=== PATIENT | female | born 1985 | race Caucasian/White ===

== ENCOUNTER → 2020-07-23 10:28 | Outpatient (BNVA) | payer MEDICAID, SELFPAY | PROVIDERS: Visit Provider Obstetrics & Gynecology | DX: Z32.01 Encounter for pregnancy test, result positive (principal) | CPT/HCPCS: 81025 ==

== ENCOUNTER 2020-08-11 20:08 | Emergency (ER) | payer MEDICAID, SELFPAY ==
[2020-08-11 20:16] VITALS: BP 145/98; PULSE 115; RESP 14; TEMP 37; O2SAT 100; BMI 31.6
--- NOTE | 2020-08-11 20:23 | ED_ITS ---
HPI - Allergic Reaction General: Chief complaint: Allergic Reaction Stated complaint: ,trouble breathing; poss allergic reaction Time Seen by Provider: 08/11/20 20:22 Source: patient Mode of arrival: ambulatory Limitations: no limitations History of Present Illness: HPI narrative: Patient comes in for concerns of shortness of breath after eating a banana and her lips feeling funny. Patient appears well. Patient appears no acute distress. Respirations are even lungs are clear to auscultation. No obvious swelling is noted. No respiratory distress is noted. Patient appears in no pain. Patient's last menstrual cycle was middle of May. Review of Systems General: Reports: 10 or more systems reviewed and unremarkable except in HPI and below Resp: Reports: dyspnea [facility] ED Female Reproductive History: Date of last menstrual period: 06/11/20 Physical Exam 2 Const: COMMON NORMALS: no acute distress and patient oriented x3 GENERAL APPEARANCE: cooperative HENMT: COMMON NORMALS: normocephalic and Normal external nose present HEAD & SCALP: normal to inspection and normocephalic NOSE: Normal external nose present MOUTH: Normal oral and palatal mucosa present THROAT: posterior oropharynx normal Eye: GENERAL EYE: appearance normal, both eyes and all related structures Neck/C-Spine: COMMON NORMALS: full ROM Chest: COMMONS NORMALS: normal inspection of the chest Resp: COMMON NORMALS: normal respiratory effort and clear to auscultation bilaterally EFFORT & INSPECTION: Yes able to speak in complete sentences AUSCULTATION: clear to auscultation bilaterally Cardio: COMMON NORMALS: regular rate and regular rhythm RATE: regular rate RHYTHM: regular rhythm GI: COMMON NORMALS: non-tender Back/Pelvis: COMMON NORMALS: thoracic and lumbar spine normal to inspection Extremity: COMMON NORMALS: normal to inspection Neuro: COMMON NORMALS: patient oriented x3 and moves all extremities Psych: COMMON NORMALS: mental status grossly normal and cooperative Skin: COMMON NORMALS: no rashes or lesions noted GENERAL SKIN EXAM: no rashes or lesions noted Course Vital Signs: Vital signs: Vital Signs Temperature 98.6 F 08/11/20 20:16 Pulse Rate 98 08/11/20 20:48 Respiratory Rate 16 08/11/20 20:48 Blood Pressure 145/98 08/11/20 20:16 Pulse Oximetry 100 08/11/20 20:48 MDM - Allergic Reaction MDM Narrative: Medical decision making narrative: 34-year-old female comes in today for concerns of nausea, shortness of breath, and tongue of mouth feeling funny after eating a banana. Patient's last menstrual cycle was the middle of May. Patient appears well. Patient appears in no acute distress. Patient reports no previous episode of allergy to bananas. Vital signs were normal. Differential diagnosis includes but not limited to food allergy, GERD, anxiety. Patient was given 50 mg of Benadryl and 20 mg of famotidine with improvement of symptoms. Reviewed recommendations for treatment and need for follow-up or return. Patient reported understanding. Patient was improved Discharge Plan Discharge Patient Disposition: Home Clinical Impression: Allergic reaction Qualifiers: Encounter type: initial encounter Qualified Code(s): T78.40XA - Allergy, unspecified, initial encounter Condition: Stable Prescriptions: New famotidine 20 mg tablet 20 mg PO BID Qty: 10 RF: 0 diphenhydramine HCl 25 mg capsule 25 mg PO Q4H PRN (Reason: allergic reaction) Qty: 30 RF: 0 Discharge Orders: Discharge ED (Routine); Ordered 08/11/20 Ordered By: Albert Waggoner Discharge Diet: Usual diet Discharge Activity: Increase activity as tolerated Patient Instructions: Food Allergy (ED) Activity Restrictions/Additional Instructions: Avoid bananas. Use Benadryl 1 capsule every 4-6 hours for the next 2 days for any itching or signs of allergic reaction. Use famotidine 20 mg twice a day for the next 5 days. Drink plenty of fluids with medication. Follow-up with primary care as needed. Coding Level of Care Code ED Glue Reel Operator for Luiza Fwd Exam Comprehensive
[2020-08-11] MEDS: famotidine 20 mg Tablet PO (20:30)
[2020-08-11] MEDS: diphenhydrAMINE 50 mg Capsule PO (20:30)
[2020-08-11 20:48] VITALS: PULSE 98; RESP 16; O2SAT 100
[2020-08-11 21:28] VITALS: PULSE 101; RESP 18; O2SAT 100
== END 2020-08-11 21:28 | disposition home or self-care (01) ==
PROVIDERS: Emergency Provider Nurse Practitioner Family
DX: O26.899 Other specified pregnancy related conditions, unspecified trimester (principal); T78.40XA Allergy, unspecified, initial encounter; Z3A.00 Weeks of gestation of pregnancy not specified
CPT/HCPCS: 12345; 99281; 99283; Q0163

== ENCOUNTER → 2020-09-19 08:44 | Outpatient (BNVA) | payer BC, SELFPAY | PROVIDERS: Visit Provider Obstetrics & Gynecology | DX: O09.892 Supervision of other high risk pregnancies, second trimester (principal); Z3A.14 14 weeks gestation of pregnancy; R80.9 Proteinuria, unspecified | CPT/HCPCS: 80307; 81511; 84315; 85025; 86592; 86762; 86803; 86850; 86900; 87086; 87340; 87806 ==

== ENCOUNTER → 2020-09-21 00:01 | Outpatient (BNVA) | payer BC, SELFPAY | PROVIDERS: Visit Provider Obstetrics & Gynecology | DX: O09.899 Supervision of other high risk pregnancies, unspecified trimester (principal); R80.9 Proteinuria, unspecified; O09.892 Supervision of other high risk pregnancies, second trimester; Z3A.14 14 weeks gestation of pregnancy | CPT/HCPCS: 84156 ==

== ENCOUNTER → 2020-10-03 09:08 | Outpatient (BNVA) | payer BC, MEDICAID, SELFPAY | PROVIDERS: Visit Provider Obstetrics & Gynecology | DX: O09.899 Supervision of other high risk pregnancies, unspecified trimester (principal); O99.332 Smoking (tobacco) complicating pregnancy, second trimester; O34.219 Maternal care for unspecified type scar from previous cesarean delivery; O09.522 Supervision of elderly multigravida, second trimester; O35.1XX0 Maternal care for (suspected) chromosomal abnormality in fetus, not applicable or unspecified; Z3A.00 Weeks of gestation of pregnancy not specified | CPT/HCPCS: 81000; 87491; 87591; 88175; 88262 ==

== ENCOUNTER → 2020-10-31 13:38 | Outpatient (BNVA) | payer BC, MEDICAID, SELFPAY | PROVIDERS: Visit Provider Nurse Practitioner Women's Health | DX: Z34.90 Encounter for supervision of normal pregnancy, unspecified, unspecified trimester (principal) | CPT/HCPCS: 80307; 81000 ==

== ENCOUNTER → 2020-12-03 09:20 | Outpatient (BNVA) | payer BC, MEDICAID, SELFPAY | PROVIDERS: Visit Provider Obstetrics & Gynecology | DX: O09.899 Supervision of other high risk pregnancies, unspecified trimester (principal); A59.01 Trichomonal vulvovaginitis | CPT/HCPCS: 81000; 87661 ==

== ENCOUNTER → 2020-12-24 08:58 | Outpatient (BNVA) | payer BC, MEDICAID, SELFPAY | PROVIDERS: Visit Provider Obstetrics & Gynecology | DX: O99.332 Smoking (tobacco) complicating pregnancy, second trimester (principal); O34.219 Maternal care for unspecified type scar from previous cesarean delivery; O09.522 Supervision of elderly multigravida, second trimester; O35.1XX0 Maternal care for (suspected) chromosomal abnormality in fetus, not applicable or unspecified; O26.892 Other specified pregnancy related conditions, second trimester; R12 Heartburn; A59.01 Trichomonal vulvovaginitis | CPT/HCPCS: 81000; 82950; 85025 ==

== ENCOUNTER → 2021-01-07 15:18 | Outpatient (BNVA) | payer BC, MEDICAID, SELFPAY | PROVIDERS: Visit Provider Obstetrics & Gynecology | DX: O09.899 Supervision of other high risk pregnancies, unspecified trimester (principal); O09.522 Supervision of elderly multigravida, second trimester; Z3A.00 Weeks of gestation of pregnancy not specified | CPT/HCPCS: 81000 ==

== ENCOUNTER 2021-01-21 09:01 | Outpatient (CLI) | payer BC, MEDICAID, SELFPAY ==
[2021-01-21] VITALS (7 sets, daily range): BP systolic 103–118; BP diastolic 61–73; PULSE 82–110; RESP 16; TEMP 36.2–36.9; BMI 32.9
[2021-01-21 09:48] LABS: Amphetamines Screen Urine Negative (Negative); Barbiturates Screen Urine Negative (Negative); Benzodiazepines Screen Urine Negative (Negative); Cocaine Screen Urine Negative (Negative); Opiate Screen Urine Negative (Negative); PCP Screen Urine Negative (Negative); THC Screen Urine Negative (Negative)
[2021-01-21 09:49] LABS: Bilirubin Urine Neg (Negative); Blood Urine Neg (Negative); Glucose Urine UA Norm (Normal); Ketones Urine Negative (Negative); Leukocyte Esterase Urine Negative (Negative); Nitrate Urine Negative (Negative); Protein Urine Neg (Negative); Urine Appearance Clear (CLEAR); Urine Color Straw (Yellow); Urobilinogen Urine Norm (Negative); pH Urine 7 (5-7)
[2021-01-21 09:51] LABS: Add Urine Culture? No; Bacteria Urine TRACE /hpf; RBC Urine 0-4 /hpf (0-2); Squamous Epithelial Cell Urine 0-4 /hpf (0-5); WBC Urine 0-4 /hpf (0-5)
--- NOTE | 2021-01-21 10:02 | USR_ITS ---
PROCEDURE INFORMATION: Exam: US , Limited Exam date and time: 01/21/2021 10:02 AM Age: 35 years old Clinical indication: Lmp or gestational age (in weeks): 35w6d; Antepartum complications; Other: Cramping; ; Prior surgery; Surgery type: D&c c-sec; Additional info: Abdominal pain; HX of placental abruption, bpp^placenta location^cervical length TECHNIQUE: Imaging protocol: Real-time ultrasound of the maternal uterus with image documentation. Exam focused on the clinical indication. COMPARISON: US OB <= 14 weeks fetus [facility] 09/14/2020 4:01 PM FINDINGS: Gestation: There is a intrauterine gestational sac seen with a fetus. heart rate rate is 136 BPM the fetus is in transverse presentation. The placenta is anterior. The edge of the placenta is 5 cm from the cervical os. The amniotic fluid is normal in volume. position: anatomic structures are incompletely visualized. BIOMETRY: Gestational age (AUA): Clinical gestational age is 35 weeks 6 days RICARDO 05/15/2020. MATERNAL: Cervix: The cervix measures 4.6 cm in length the cervical os is closed. US/US OB lmt w/ BPP wo NST IMPRESSION: 1. Single intrauterine gestation 2. Clinical gestational age 35 weeks 6 days RICARDO 02/19/2021. 3. Incomplete visualization of anatomy 4. Biophysical profile 02/24
== END 2021-01-21 12:15 | disposition home or self-care (01) ==
LOC: OPOB 09:03 → OBGYN 09:04
PROVIDERS: Visit Provider Obstetrics & Gynecology
DX: O26.893 Other specified pregnancy related conditions, third trimester (principal); Z3A.35 35 weeks gestation of pregnancy; R10.9 Unspecified abdominal pain
CPT/HCPCS: 59025; 76815; 76819; 80306; 81001; 99211

== ENCOUNTER 2021-01-24 14:45 | Outpatient (CLI) | payer BC, MEDICAID, SELFPAY ==
[2021-01-24 14:59] VITALS: BMI 32.9
[2021-01-24 15:01] VITALS: BP 110/76; PULSE 106; RESP 16; TEMP 36.8; O2SAT 97
[2021-01-24] MEDS: betamethasone susp 6 mg/mL 5 mL 12 MG IM (15:08)
== END 2021-01-24 15:11 | disposition home or self-care (01) ==
LOC: OPOB 14:55 → OBGYN 14:56
PROVIDERS: Visit Provider Obstetrics & Gynecology
DX: O26.899 Other specified pregnancy related conditions, unspecified trimester (principal); Z3A.00 Weeks of gestation of pregnancy not specified
CPT/HCPCS: 96372; J0702

== ENCOUNTER 2021-01-25 13:54 | Outpatient (CLI) | payer BC, MEDICAID, SELFPAY ==
[2021-01-25 13:54] VITALS: BMI 33.1
[2021-01-25 14:17] VITALS: BP 118/62; PULSE 99; RESP 16; TEMP 36.6
[2021-01-25] MEDS: betamethasone susp 6 mg/mL 5 mL 12 MG IM (14:39)
== END 2021-01-25 14:40 | disposition home or self-care (01) ==
LOC: OPOB 13:59 → OBGYN 14:05
PROVIDERS: Visit Provider Obstetrics & Gynecology
DX: O26.899 Other specified pregnancy related conditions, unspecified trimester (principal); Z3A.00 Weeks of gestation of pregnancy not specified
CPT/HCPCS: 59025; 81000; 96372; 99211; J0702

== ENCOUNTER → 2021-02-01 09:51 | Outpatient (BNVA) | payer BC, MEDICAID, SELFPAY | PROVIDERS: Visit Provider Obstetrics & Gynecology | DX: O09.899 Supervision of other high risk pregnancies, unspecified trimester (principal); Z3A.00 Weeks of gestation of pregnancy not specified | CPT/HCPCS: 81000 ==

== ENCOUNTER → 2021-02-08 12:35 | Outpatient (BNVA) | payer BC, MEDICAID, SELFPAY | PROVIDERS: Visit Provider Obstetrics & Gynecology | DX: O09.899 Supervision of other high risk pregnancies, unspecified trimester (principal); Z3A.00 Weeks of gestation of pregnancy not specified | CPT/HCPCS: 81000 ==

== ENCOUNTER 2021-02-12 09:12 | Outpatient (CLI) | payer BC, MEDICAID, SELFPAY ==
[2021-02-12 09:19] VITALS: RESP 16
[2021-02-12 09:20] VITALS: BP 110/70; PULSE 101; TEMP 36.2
[2021-02-12 09:21] VITALS: BMI 33.3
[2021-02-12] MEDS: betamethasone susp 6 mg/mL 5 mL 12 MG IM (09:43)
== END 2021-02-12 09:45 | disposition home or self-care (01) ==
LOC: OPOB 09:13 → OBGYN 09:13
PROVIDERS: Visit Provider Obstetrics & Gynecology
DX: O26.899 Other specified pregnancy related conditions, unspecified trimester (principal); Z3A.00 Weeks of gestation of pregnancy not specified
CPT/HCPCS: 96372; J0702

== ENCOUNTER → 2021-02-13 09:49 | Outpatient (BNVA) | payer BC, MEDICAID, SELFPAY | PROVIDERS: Visit Provider Obstetrics & Gynecology | DX: O34.219 Maternal care for unspecified type scar from previous cesarean delivery (principal); Z3A.00 Weeks of gestation of pregnancy not specified | CPT/HCPCS: 87635 ==

== ENCOUNTER → 2021-02-14 11:10 | Outpatient (BNVA) | payer BC, MEDICAID, SELFPAY | PROVIDERS: Visit Provider Obstetrics & Gynecology | DX: O09.899 Supervision of other high risk pregnancies, unspecified trimester (principal); Z3A.00 Weeks of gestation of pregnancy not specified | CPT/HCPCS: 81000; 87081 ==

== ENCOUNTER 2021-02-19 05:06 | Inpatient (IN) | payer BC, MEDICAID, SELFPAY ==
[2021-02-19] VITALS (24 sets, daily range): BP systolic 101–154; BP diastolic 34–87; PULSE 63–104; RESP 17; TEMP 35.9–37.1; O2SAT 93–100; BMI 33.5
[2021-02-19] MEDS: lactated ringers 1,000 ML 999 ML IV ×2 (05:12→07:13)
[2021-02-19 05:38] LABS: Basophils % 0.3 %; Eosinophils # 0.2 10^3/uL (0.0-0.8); Eosinophils % 1.7 %; Hematocrit 34.3 % (37.0-47.0); Hemoglobin 11.2 g/dL (11.5-15.3); Lymphocytes # 4.1 10^3/uL (0.8-4.8); Lymphocytes % 29.7 %; Mean Corpuscular HGB Conc 32.7 g/dL (30.0-36.0); Mean Corpuscular Hemoglobin 28.8 pg (28.0-34.0); Mean Corpuscular Volume 88.2 fL (81-99); Mean Platelet Volume 10.5 fL (7.4-10.4); Monocytes # 0.8 10^3/uL (0.2-0.9); Monocytes % 5.5 %; Neutrophils # 8.66 10^3/uL (1.8-7.7); Neutrophils % 62.4 %; Nucleated Red Blood Cells % 0 %; Platelet Count 406 10^3/cmm (130-400); Red Blood Count 3.89 10^6/uL (4.1-5.3); White Blood Count 13.9 10^3/uL (4.0-10.0)
[2021-02-19 05:48] LABS: Amphetamines Screen Urine Negative (Negative); Barbiturates Screen Urine Negative (Negative); Benzodiazepines Screen Urine Negative (Negative); Cocaine Screen Urine Negative (Negative); Opiate Screen Urine Negative (Negative); PCP Screen Urine Negative (Negative); THC Screen Urine Negative (Negative)
[2021-02-19 06:16] LABS: Slide Review Slide Review Perform
--- NOTE | 2021-02-19 06:47 | ANES.PREANE2 ---
Pre-Anesthetic Assessment Pre-Anesthetic Assessment: Height/Weight: Height 1.6 m Weight 85.729 kg Temp Pulse BP 96.6 F L 90 110/55 02/19/21 05:31 02/19/21 06:33 02/19/21 06:33 Preop Diagnosis: Previous Section Proposed Procedure: Operation Date: 02/19/21 07:00 Proposed Procedures p Section Repeat 66189 O34.219(Not Applicable) - Angely Hoffman MD Was Beta Arpit taken within 24 hours: N/A Was Clonidine taken within 24 hours: N/A Social: Social History: Tobacco Exam: Pre-Anes Outpt Exam: alert, oriented x 3, clear to auscultation bilaterally and regular rate & rhythm Airway: Submandibular: WNL Cervical ROM: WNL MP: 2 Dentition: Chipped and Loose Additional comments: very poor dentition History/ROS: No significant history except as noted Pulmonary: Comments: chronic bronchitis CV/HEM: CV/HEM: None reported : : None reported Hepatic: Hepatic: None reported GI: GI: GERD Metabolic: Metabolic: None reported Musc/skel: Musc/skel: None reported Neuropsych: Neuropsych: None reported Anesthetic Plan: ASA status: 2 Anesthesia: Anesthesia Evaluation and Eval. for regional block Other: SAB Risk of > 500 ml blood loss (7ml/kg in children): No PFSH Anesthesia PFSH: Medical History Bronchitis frequent No pertinent past medical history neghx: htn,dm,thyroid,dvt/pe,herpes Denies past partner herpes hx PCP: none Surgical History H/O dilation and curettage (~2009) History of section (~2010) delivered at 20weeks; placental abruption Family History Family/Other Cancer Paternal aunt with breast Family/Other Cancer Paternal uncle-- colon cancer Mother Family history of premature coronary artery disease, Onset Age: 39 [place] Stroke Diabetes Father CAD (coronary artery disease) Hyperlipidemia Hypertension Female Reproductive History: : 3 Data Anesthesia CBC & Chem 7: 02/19/21 05:25 Other Labs: Laboratory Results - last 48 hr 02/19/21 02/19/21 02/19/21 05:25 05:25 05:25 WBC 13.9 H RBC 3.89 L Hgb 11.2 L Hct 34.3 L MCV 88.2 MCH 28.8 MCHC 32.7 RDW 14.0 Plt Count 406 H MPV 10.5 H Neut % (Auto) 62.4 Lymph % (Auto) 29.7 [place] % (Auto) 5.5 Eos % (Auto) 1.7 Baso % (Auto) 0.3 Neut # (Auto) 8.66 H Lymph # (Auto) 4.1 [place] # (Auto) 0.8 Eos # (Auto) 0.2 Baso # (Auto) 0.0 Nucleated RBC % (auto) 0 Nucleated RBCs # 0.0 Urine Opiates Screen Negative Ur Barbiturates Screen Negative Ur Phencyclidine Scrn Negative Ur Amphetamines Screen Negative U Benzodiazepines Scrn Negative Urine Cocaine Screen Negative U Marijuana (THC) Screen Negative Blood Type O Positive Rho(D) Type Positive / 4+ Cardiac Studies: No Data to Display
--- NOTE | 2021-02-19 06:55 | W.PM.OPSUD ---
Surgery/Procedure H&P Update DATE OF PROCEDURE: February 19, 2021 DATE H&P PERFORMED: 02/14/21 H&P UPDATE INFORMATION: I have reviewed H&P completed within last 30 days, I have examined patient prior to procedure and No changes to prior documentation PREOP DIAGNOSIS: Previous Section PLANNED PROCEDURE: Operation Date: 02/19/21 07:00 Proposed Procedures p Section Repeat 96495 O34.219(Not Applicable) - Angely Hoffman MD
[2021-02-19] MEDS: metoclopramide 5 mg/mL SDV 2 mL 10 MG IVP (06:57)
[2021-02-19] MEDS: famotidine 20 mg/2 mL INJ IVP (06:57)
[2021-02-19] MEDS: citric acid-sodium citrate 30 mL UDC PO (06:57)
--- NOTE | 2021-02-19 08:46 | PM.OP ---
Operative Report Date of procedure: February 19, 2021 Pre-op Diagnosis: Previous Section, previous classical incision Post-op diagnosis: same Post-op Findings: same with septate uterus Procedure Done: repeat Specimens removed/disposition: placenta Pathology: none sent Surgeon: Angely Hoffman Anesthesia: Other (spinal) Estimated blood loss (mL): 300 IV fluids (mL): 1,000 Urine output (mL): 50 Complications: none Findings: anterior placenta without evidence of acreta. Baby in transverse back down presentation Condition: stable Disposition: PACU Brief History: The patient had a previous classical for a 24 week baby that . This has been complicated by a fetus with Mcarthur's syndrome and previous classical Procedure: The patient was taken to the operating room where spinal anesthesia was administered and found to be adequate. She was prepped and draped in the normal sterile fashion in the dorsal supine position with a leftward tilt. A Pfannenstiel skin incision was made and carried down to the underlying layer of fascia. The fascia was nicked in the midline and extended laterally with the Jimenez scissors. The fascia was then tented up and the rectus muscles dissected off sharply. The rectus muscles were and the peritoneum entered bluntly with the digit. The peritoneal incision was extended superiorly and inferiorly with good visualization of the bladder. The Wali O retractor was placed. It was clear of any bowel or omentum. The bladder flap was created sharply with the Metzenbaum scissors. A low transverse uterine incision was made and carried down to the bag of water. The bag of water was ruptured and the uterine incision extended cephalocaudad. The scalp was grasped and brought through the incision. The nose and mouth were bulb suctioned. The shoulders and body delivered atraumatically. The baby was allowed to rest, while being dried, for 1 minute and then the cord was clamped and cut. The baby was handed to the waiting irrigation system operator. The placenta was delivered by expression. The uterus was exteriorized and cleared of all clots and debris. The uterine incision was closed with 0 Vicryl in a running fashion. A second imbricating layer of 3-0 Monocryl was used to close the uterus. The bladder flap was closed with 3-0 Monocryl. There was excellent hemostasis. The Wali O retractor was removed. The uterus was returned to the abdomen. The peritoneum was closed with 3-0 Monocryl, incorporating the rectus muscle. The fascia was closed with 0 Vicryl in 2 separate sutures overlapping in the midline. The skin was closed with absorbable maite. Apgars on baby 8 at 1 minute and 9 at 5 minutes. weight 4 pounds 15 ounces. Mother and baby were stable post delivery.
[2021-02-19] MEDS: ondansetron 2 mg/ML SDV 2 mL 4 MG IVP (09:46)
[2021-02-19] MEDS: promethazine 25 mg/mL SDV 1 mL IM (11:48)
[2021-02-19] MEDS: lactated ringers 1,000 ML 125 ML IV (15:51)
[2021-02-19] MEDS: ketorolac 30 mg/mL INJ IVP ×2 (16:18→20:52)
--- NOTE | 2021-02-19 17:06 | ANE.PACU2 ---
Inpatient post-anesthesia follow up: Airway intact: Yes Vital signs: Temperature 98.2 F Pulse Rate 63 Respiratory Rate Blood Pressure 103/69 Pulse Oximetry 95 Oxygen Delivery Me thod Room Air Oxygen Flow Rate Fraction of Inspir ed Oxygen Hydration adequate: Yes Nausea and vomiting: No Pain level: 2 Mental status: Baseline
--- NOTE | 2021-02-19 17:37 | PC.NURSE ---
Pt given nipple shield in hopes to assist in keeping baby latched when she relaxes. not keeping a rhythmic suck, supplement of similac 22cal formula given per syringe and IV cath tip through shield to entice baby to keep a rhythmic suck. Infant tolerated feeding well and remained at the breast for 10min and took 6ml of formula.
--- NOTE | 2021-02-19 18:20 | PC.NURSE ---
Patient ambulated in hallway around nurses station 4 times. Patient tolerated well, no complaints of dizziness.
[2021-02-19] MEDS: sodium chloride 0.9% 500 ML 999 ML IV (18:25)
[2021-02-19] MEDS: docusate sodium 100 mg Capsule PO (18:56)
[2021-02-19] MEDS: famotidine 20 mg Tablet PO (18:56)
[2021-02-19] MEDS: ferrous sulfate EC 325 mg Tablet PO (18:56)
[2021-02-19] MEDS: simethicone 80 mg Chew PO (20:52)
[2021-02-19 21:17] LABS: Hematocrit 30.3 % (37.0-47.0); Hemoglobin 9.8 g/dL (11.5-15.3); Mean Corpuscular HGB Conc 32.3 g/dL (30.0-36.0); Mean Corpuscular Hemoglobin 29.1 pg (28.0-34.0); Mean Corpuscular Volume 89.9 fL (81-99); Mean Platelet Volume 10.6 fL (7.4-10.4); Platelet Count 362 10^3/cmm (130-400); Red Blood Count 3.37 10^6/uL (4.1-5.3); White Blood Count 16.8 10^3/uL (4.0-10.0)
[2021-02-20] MEDS: dextrose 5%-lactated ringers 1,000 ML 125 ML IV (00:54)
[2021-02-20] MEDS: ketorolac 30 mg/mL INJ IVP (02:47)
[2021-02-20 04:00] VITALS: BP 97/68; PULSE 71; RESP 13; O2SAT 95
[2021-02-20 04:29] LABS: Basophils # 0.1 10^3/uL (0.0-0.1); Basophils % 0.3 %; Eosinophils # 0.2 10^3/uL (0.0-0.8); Eosinophils % 1.2 %; Hematocrit 28.6 % (37.0-47.0); Hemoglobin 9.3 g/dL (11.5-15.3); Lymphocytes # 4.1 10^3/uL (0.8-4.8); Lymphocytes % 24.2 %; Mean Corpuscular HGB Conc 32.5 g/dL (30.0-36.0); Mean Corpuscular Volume 89.1 fL (81-99); Mean Platelet Volume 10.5 fL (7.4-10.4); Monocytes # 1.1 10^3/uL (0.2-0.9); Monocytes % 6.3 %; Neutrophils # 11.45 10^3/uL (1.8-7.7); Neutrophils % 67.5 %; Nucleated Red Blood Cells % 0 %; Platelet Count 329 10^3/cmm (130-400); Red Blood Count 3.21 10^6/uL (4.1-5.3)
[2021-02-20 04:44] LABS: Slide Review Slide Review Perform
[2021-02-20] MEDS: famotidine 20 mg Tablet PO (08:59)
[2021-02-20] MEDS: lanolin oint 7 gm 1 APPLIC TOPICAL (08:59)
[2021-02-20] MEDS: prenatal vitamin Capsule 1 CAP PO (08:59)
[2021-02-20] MEDS: docusate sodium 100 mg Capsule PO ×2 (08:59→17:59)
[2021-02-20] MEDS: ferrous sulfate EC 325 mg Tablet PO ×2 (08:59→17:59)
[2021-02-20] MEDS: ibuprofen 800 mg tablet PO ×3 (10:16→21:15)
[2021-02-20 10:18] VITALS: BP 104/68; PULSE 88; RESP 16; TEMP 36.7; O2SAT 97
--- NOTE | 2021-02-20 12:02 | P.PN_ITS ---
Subjective Subjective: Interval history: The patient is doing well this morning. No concerns. Pain is well controlled. Vitals/I&O/Wt Last Vital Signs Temp 98.0 F 02/20/21 10:18 Pulse 88 02/20/21 10:18 Resp 16 02/20/21 10:18 BP 104/68 02/20/21 10:18 Pulse Ox 97 02/20/21 10:18 02/19/21 02/20/21 02/20/21 22:59 06:59 14:59 Intake Total 820.833 / 2820.833 3439.167 / 3439.167 Output Total 620 / 1140 600 / 1740 Balance 200.833 / 1680.833 -600 / 5970.587 2646.167 / 3439.167 Weight last 48 hrs Weight 189 lb Physical Exam Narrative: EXAM NARRATIVE: The patient is tolerating a regular diet. Pain is well controlled. No further nausea. She would like to be discharged, but baby is unlikely to go home today Const: COMMON NORMALS: no acute distress, average body habitus, patient orien attila x3, no limitations, healthy appearing, alert and well nourished GENERAL APPEARANCE: cooperative, comfortable, well kempt and well developed ORIENTATION/CONSCIOUSNESS: Yes awake, Yes oriented to person, Yes oriented to place and Yes oriented to time Resp: COMMON NORMALS: normal respiratory effort and No use of accessory muscles Extremity: COMMON NORMALS: no clubbing, cyanosis or edema and no calf tenderness Neuro: COMMON NORMALS: patient oriented x3 SENSORIUM/ORIENTATION: Yes alert, Yes oriented to person, Yes oriented to place and Yes oriented to time Psych: COMMON NORMALS: mental status grossly normal, Normal thought process present, cooperative, normal affect and speech normal APPEARANCE: Yes grossly normal and Yes well kempt ATTITUDE: Yes calm and Yes engaged ACTIVITY/MOTOR BEHAVIOR: Yes appropriate eye contact SPEECH: Yes normal speech THOUGHT PROCESS: Normal thought process present Skin: WOUNDS: Yes surgical site (clean/dry and intact) Urinary Catheter Management^: Beck: Cath Placed During This Visit: yes, but has since been removed by the nurse Reason for Continuing Indwelling Catheter: Accurate Measurement of Urinary Output in Critically Ill Patients Urinary Catheter Date of Insertion: 02/19/21 Urinary Catheter Time of Insertion: 07:25 Date Urinary Catheter Removed: 08/04/21 Time Urinary Catheter Discontinued: 01:00 Data : 02/20/21 04:00 A&P Assessment and plan (1) Postoperative state: Status: Acute Attestations Medical Necessity Statement*: The patient had a repeat . She is staying two days Coding Level of Care Code Acute Burling And Joining Supervisor for Luiza Silver Diagnoses Postoperative state Z98.890
--- NOTE | 2021-02-20 12:42 | PC.NURSE ---
note Discussed feeding with mom. Plan made. 1. Baby to the breast for 10 min to feed or just nuzzle with or without a nipple shield 2. Baby to bottle feed 10 ml (or more if baby wants more) of formula or expressed breastmilk (if available). Give the expressed breastmilk first. 3. Mom pumps both breasts for 15 min. Repeat every 2-3 hours. Goal of 10 feedings or more in 24 hours. Should not go less than 8 feedings in 24 hours.
--- NOTE | 2021-02-20 14:58 | PC.RESP ---
Smoking Cessation information sent to patient.
[2021-02-20 15:57] VITALS: BP 113/75; PULSE 82; RESP 16; TEMP 36.7; O2SAT 96
[2021-02-20 21:18] VITALS: BP 128/86; PULSE 62; RESP 16; TEMP 36.6; O2SAT 97
[2021-02-21 04:00] VITALS: BP 122/82; PULSE 83; RESP 16; O2SAT 97
[2021-02-21] MEDS: HYDROcodone-acetaminophen 5-325 mg Tablet PO (06:16)
--- NOTE | 2021-02-21 07:54 | PM.DCS ---
Discharge Providers Date of Admission: 02/19/21 05:06 Date of Discharge: February 21, 2021 Attending Provider at Admission: Angely Hoffman MD Attending Provider at Discharge: Angely Hoffman MD Diagnoses at Discharge Discharge Diagnosis (1) Postoperative state: Status: Acute Reason for Visit Reason for Visit: repeat section Hospital Course Hospital Course The patient was admitted for repeat . she did well postoperatively and was ready for discharge on day #2 Physical Exam Narrative: EXAM NARRATIVE: The patient is doing well this morning. No concerns. Minimal lochia, ambulating without difficulty, tolerating a regular diet and pain is well controlled Const: COMMON NORMALS: no acute distress, average body habitus, patient oriented x3, no limitations and healthy appearing GENERAL APPEARANCE: cooperative, comfortable, well kempt and well developed ORIENTATION/CONSCIOUSNESS: Yes awake and Yes oriented to time Resp: COMMON NORMALS: normal respiratory effort and No use of accessory muscles GI: COMMON NORMALS: Soft to palpation and non-tender PALPATION: Yes Soft to palpation Extremity: COMMON NORMALS: no clubbing, cyanosis or edema and no calf tenderness Neuro: COMMON NORMALS: patient oriented x3 SENSORIUM/ORIENTATION: Yes oriented to time Psych: APPEARANCE: Yes well kempt Skin: WOUNDS: Yes surgical site (clean/dry/intact) Urinary Catheter Management^: Beck: Cath Placed During This Visit: yes, but has since been removed by the nurse Reason for Continuing Indwelling Catheter: Accurate Measurement of Urinary Output in Critically Ill Patients Urinary Catheter Date of Insertion: 02/19/21 Urinary Catheter Time of Insertion: 07:25 Date Urinary Catheter Removed: 02/20/21 Time Urinary Catheter Discontinued: 01:00 Discharge Data Data Completed and Pending: Pending at discharge Category Date Time Status Leukocyte Reduced RBC Timed Lab 02/19/21 05:25 Results Type and Screen T imed Lab 02/19/21 05:25 Results Vitals: Last Vital Signs Temp 97.9 F 02/20/21 21:18 Pulse 83 02/21/21 04:00 Resp 16 02/21/21 04:00 BP 122/82 02/21/21 04:00 Pulse Ox 97 02/21/21 04:00 Discharge Plan Discharge Patient Disposition: Home Condition: Stable Prescriptions: New hydrocodone-acetaminophen 5-325 mg Tablet 1 tab PO Q4H PRN (Reason: Moderate To Severe Pain) Qty: 30 RF: 0 Continued multivitamin [One Daily Multivitamin] Tablet 1 tab PO DAILY RF: 0 famotidine [Pepcid] 20 mg tablet 20 mg PO BID Qty: 60 RF: 6 acetaminophen [Tylenol Extra Strength] 500 mg tablet 500 mg PO Q6H PRN (Reason: Pain, Mild) RF: 0 calcium carb-mag ox-zinc gluc 333-133-5 mg tablet 1 tab PO DAILY RF: 0 Discharge Orders: Discharge Order (Routine); Ordered 02/21/21 Ordered By: Angely Hoffman Referrals: Angely Hoffman MD [Physician] - 02/25/21 12:45 pm (Your 1 week incision check is scheduled for 02/25/21 @12:45. Your 6 week post- appointment is scheduled for 04/01/21 @12:45. ) Patient Instructions: Vitamins (By mouth), Depression (GEN), Pre-eclampsia and Eclampsia (DC), Bleeding (DC), OB WHC, OB Discharge Report, OB Food/Drug Interaction Guide, Opioid Safety, OB Proud Parent Packet Discharge Attestations Time Spent in Discharge Care*: less than 30 min Quality Metrics Clinical Quality Measures During this hospital stay, did patient experience: None Coding Level of Care Code Acute Chg FW DC note Diagnoses Postoperative state Z98.890
[2021-02-21] MEDS: famotidine 20 mg Tablet PO (09:19)
[2021-02-21] MEDS: ferrous sulfate EC 325 mg Tablet PO (09:19)
[2021-02-21] MEDS: ibuprofen 800 mg tablet PO (09:19)
[2021-02-21] MEDS: docusate sodium 100 mg Capsule PO (09:19)
[2021-02-21] MEDS: prenatal vitamin Capsule 1 CAP PO (09:19)
[2021-02-21 09:20] VITALS: BP 123/75; PULSE 87; RESP 18; TEMP 36.5; O2SAT 98
[2021-02-21 12:35] VITALS: BP 128/75; PULSE 68; RESP 16; TEMP 36.9; O2SAT 98
== END 2021-02-21 13:40 | disposition home or self-care (01) | DRG 786 ==
PROVIDERS: Admitting Provider Obstetrics & Gynecology; Visit Provider Obstetrics & Gynecology
PROC: 10D00Z1 Extraction of Products of Conception, Low, Open Approach (ICD-10-PCS; CPT 59514; principal; 2021-02-19 07:00)
DX: O34.212 Maternal care for vertical scar from previous cesarean delivery (principal); O60.14X0 Preterm labor third trimester with preterm delivery third trimester, not applicable or unspecified; O99.334 Smoking (tobacco) complicating childbirth; F17.210 Nicotine dependence, cigarettes, uncomplicated; O35.1XX0 Maternal care for (suspected) chromosomal abnormality in fetus, not applicable or unspecified; O75.89 Other specified complications of labor and delivery; R12 Heartburn; Z3A.36 36 weeks gestation of pregnancy; Z37.0 Single live birth; Z87.59 Personal history of other complications of pregnancy, childbirth and the puerperium
CPT/HCPCS: 36415; 51702; 59025; 59409; 80306; 85025; 85027; 86850; 86900; 86920; 96372; 96374; 96375; 98960; J0690; J1885; J2274; J2370; J2405; J2550; J2765; J3490; J7040

== ENCOUNTER → 2021-11-12 07:58 | Outpatient (BNVA) | payer BC, MEDICAID, SELFPAY | PROVIDERS: Visit Provider Nurse Practitioner Women's Health | DX: N92.6 Irregular menstruation, unspecified (principal); Z34.90 Encounter for supervision of normal pregnancy, unspecified, unspecified trimester | CPT/HCPCS: 80307; 81025 ==

== ENCOUNTER → 2021-12-09 08:55 | Outpatient (BNVA) | payer BC, MEDICAID, SELFPAY | PROVIDERS: Visit Provider Obstetrics & Gynecology | DX: O09.90 Supervision of high risk pregnancy, unspecified, unspecified trimester (principal); Z3A.00 Weeks of gestation of pregnancy not specified | CPT/HCPCS: 80307; 81000; 87086 ==

== ENCOUNTER → 2022-01-01 13:40 | Outpatient (BNVA) | payer BC, MEDICAID, SELFPAY | PROVIDERS: Visit Provider Obstetrics & Gynecology | DX: O09.90 Supervision of high risk pregnancy, unspecified, unspecified trimester (principal); Z3A.00 Weeks of gestation of pregnancy not specified | CPT/HCPCS: 81000; 84443; 85025; 86592; 86762; 86803; 86850; 86900; 87340 ==

== ENCOUNTER → 2022-01-23 15:40 | Outpatient (BNVA) | payer BC, MEDICAID, SELFPAY | PROVIDERS: Visit Provider Obstetrics & Gynecology | DX: O09.90 Supervision of high risk pregnancy, unspecified, unspecified trimester (principal); Z3A.00 Weeks of gestation of pregnancy not specified | CPT/HCPCS: 81000 ==

== ENCOUNTER 2022-02-20 14:24 | Outpatient (CLI) | payer BC, MEDICAID, SELFPAY ==
[2022-02-20 15:15] LABS: Glucose Tolerance 1 Hour Gest 95 mg/dL
== END 2022-02-20 14:25 | disposition home or self-care (01) ==
PROVIDERS: Visit Provider Obstetrics & Gynecology
DX: O09.90 Supervision of high risk pregnancy, unspecified, unspecified trimester (principal); Q99.9 Chromosomal abnormality, unspecified
CPT/HCPCS: 81000; 82950; 88262

== ENCOUNTER → 2022-03-17 08:56 | Outpatient (BNVA) | payer BC, MEDICAID, SELFPAY | PROVIDERS: Visit Provider Obstetrics & Gynecology | DX: O09.90 Supervision of high risk pregnancy, unspecified, unspecified trimester (principal) | CPT/HCPCS: 81000 ==

== ENCOUNTER → 2022-04-14 09:17 | Outpatient (BNVA) | payer BC, MEDICAID, SELFPAY | PROVIDERS: Visit Provider Obstetrics & Gynecology | DX: O09.90 Supervision of high risk pregnancy, unspecified, unspecified trimester (principal); Z3A.00 Weeks of gestation of pregnancy not specified | CPT/HCPCS: 81000; 82950; 85025 ==

== ENCOUNTER → 2022-04-24 08:20 | Outpatient (BNVA) | payer BC, MEDICAID, SELFPAY | PROVIDERS: Visit Provider Obstetrics & Gynecology | DX: O09.90 Supervision of high risk pregnancy, unspecified, unspecified trimester (principal) | CPT/HCPCS: 82951; 82952 ==

== ENCOUNTER 2022-04-28 10:45 | Outpatient (CLI) | payer BC, MEDICAID, SELFPAY ==
[2022-04-28] MEDS: betamethasone susp 6 mg/mL 5 mL 12 MG IM (10:59)
--- NOTE | 2022-04-28 11:12 | PC.NURSE ---
DR. MUÑOZ ORDERED PATIENT A BETAMETHASONE INJECTION ONLY, ASKED IF SHE NEEDED MONITORING OR VITALS AND SHE SAID NO JUST INJECTION.
== END 2022-04-28 11:00 | disposition home or self-care (01) ==
LOC: OPOB 10:49 → OBGYN 10:50
PROVIDERS: Visit Provider Obstetrics & Gynecology
DX: O26.899 Other specified pregnancy related conditions, unspecified trimester (principal); Z3A.00 Weeks of gestation of pregnancy not specified
CPT/HCPCS: 81000; 96372; J0702

== ENCOUNTER 2022-04-29 10:52 | Outpatient (CLI) | payer BC, MEDICAID, SELFPAY ==
[2022-04-29 11:09] VITALS: RESP 18; BMI 32.4
[2022-04-29] MEDS: betamethasone susp 6 mg/mL 5 mL 12 MG IM (11:14)
== END 2022-04-29 11:10 | disposition home or self-care (01) ==
LOC: OPOB 10:59
PROVIDERS: Visit Provider Obstetrics & Gynecology
DX: O26.899 Other specified pregnancy related conditions, unspecified trimester (principal); Z3A.00 Weeks of gestation of pregnancy not specified
CPT/HCPCS: 96372; J0702

== ENCOUNTER → 2022-05-12 10:40 | Outpatient (BNVA) | payer BC, MEDICAID, SELFPAY | PROVIDERS: Visit Provider Obstetrics & Gynecology | DX: O09.90 Supervision of high risk pregnancy, unspecified, unspecified trimester (principal) | CPT/HCPCS: 81000 ==

== ENCOUNTER → 2022-05-26 10:48 | Outpatient (BNVA) | payer BC, MEDICAID, SELFPAY | PROVIDERS: Visit Provider Obstetrics & Gynecology | DX: O09.90 Supervision of high risk pregnancy, unspecified, unspecified trimester (principal); Z3A.00 Weeks of gestation of pregnancy not specified | CPT/HCPCS: 81000; 87081 ==

== ENCOUNTER 2022-06-02 14:03 | Outpatient (CLI) | payer BC, MEDICAID, SELFPAY ==
[2022-06-02 14:07] VITALS: BMI 33.1
[2022-06-02 14:55] VITALS: BP 109/71; PULSE 96; RESP 16
[2022-06-02] MEDS: dexamethasone 10 mg/mL INJ 6 MG IM (14:55)
[2022-06-02 15:00] VITALS: BP 109/71; PULSE 96; RESP 16
== END 2022-06-02 15:00 | disposition home or self-care (01) ==
LOC: OPOB 14:04 → OBGYN 14:05
PROVIDERS: Visit Provider Obstetrics & Gynecology
DX: O26.899 Other specified pregnancy related conditions, unspecified trimester (principal); Z3A.00 Weeks of gestation of pregnancy not specified
CPT/HCPCS: 96372; 99211; J1100

== ENCOUNTER 2022-06-03 07:00 | Outpatient (CLI) | payer BC, MEDICAID, SELFPAY ==
[2022-06-03] MEDS: dexamethasone 10 mg/mL INJ 6 MG IM (07:29)
== END 2022-06-03 07:30 | disposition home or self-care (01) ==
LOC: OPOB 07:06
PROVIDERS: Visit Provider Obstetrics & Gynecology
DX: O26.899 Other specified pregnancy related conditions, unspecified trimester (principal); Z3A.00 Weeks of gestation of pregnancy not specified
CPT/HCPCS: 96372; J1100

== ENCOUNTER 2022-06-03 18:50 | Outpatient (CLI) | payer BC, MEDICAID, SELFPAY ==
[2022-06-03] MEDS: dexamethasone 10 mg/mL INJ 6 MG IM (19:29)
--- NOTE | 2022-06-03 19:39 | PC.NURSE ---
Pt here for IM injection at this time. Injection given to pt in R deltoid. Pt instructed to return to OB tomorrow morning for injection. Pt verbalized understanding.
== END 2022-06-03 19:30 | disposition home or self-care (01) ==
LOC: OPOB 18:56
PROVIDERS: Visit Provider Obstetrics & Gynecology
DX: O26.899 Other specified pregnancy related conditions, unspecified trimester (principal); Z3A.00 Weeks of gestation of pregnancy not specified
CPT/HCPCS: 96372; J1100

== ENCOUNTER 2022-06-04 06:59 | Outpatient (CLI) | payer BC, MEDICAID, SELFPAY ==
[2022-06-04 07:09] VITALS: BMI 33.1
[2022-06-04 07:40] VITALS: BP 119/79; PULSE 81; RESP 15; TEMP 36.9
[2022-06-04] MEDS: dexamethasone 10 mg/mL INJ 6 MG IM (07:41)
== END 2022-06-04 07:43 | disposition home or self-care (01) ==
LOC: OPOB 07:01 → OBGYN 08:04
PROVIDERS: Visit Provider Obstetrics & Gynecology
DX: O26.899 Other specified pregnancy related conditions, unspecified trimester (principal); Z3A.00 Weeks of gestation of pregnancy not specified
CPT/HCPCS: 96372; J1100

== ENCOUNTER 2022-06-10 04:59 | Inpatient (IN) | payer BC, MEDICAID, SELFPAY ==
[2022-06-10] VITALS (28 sets, daily range): BP systolic 96–132; BP diastolic 49–79; PULSE 53–109; RESP 16–17; TEMP 36.6–36.9; O2SAT 95–99; BMI 33.6
[2022-06-10 05:30] LABS: Basophils % 0.2 %; Eosinophils # 0.2 10^3/uL (0.0-0.8); Eosinophils % 1.5 %; Hematocrit 35.4 % (37.0-47.0); Hemoglobin 11.3 g/dL (11.5-15.3); Lymphocytes # 3.6 10^3/uL (0.8-4.8); Mean Corpuscular HGB Conc 31.9 g/dL (30.0-36.0); Mean Corpuscular Hemoglobin 27.8 pg (28.0-34.0); Mean Corpuscular Volume 87.2 fl (81-99); Monocytes # 0.8 10^3/uL (0.2-0.9); Monocytes % 5.3 %; Neutrophils # 9.57 10^3/uL (1.8-7.7); Neutrophils % 67.4 %; Nucleated Red Blood Cells % 0 %; Platelet Count 329 10^3/cmm (130-400); Red Blood Count 4.06 10^6/uL (4.1-5.3); Red Cell Distribution Width 15.2 % (12.1-15.1); White Blood Count 14.2 10^3/uL (4.0-10.0)
[2022-06-10] MEDS: lactated ringers 1,000 ML 999 ML IV ×2 (05:33→06:40)
--- NOTE | 2022-06-10 06:45 | P.ANESASSM_ITS ---
Pre-Anesthetic Assessment Height/Weight: Height 1.6 m Weight 86.183 kg Pulse Resp BP O2 Del Method 85 16 110/62 06/10/22 06:24 06/10/22 05:02 06/10/22 06:24 06/10/22 05:05 Preop Diagnosis: Previous Section, previous classical incision Operation Date: 06/10/22 07:00 Proposed Procedures p Section Repeat With Tubal 42255/68654 O34.219 z30.2(Not Applicable) - Angely Hoffman MD Familial anesthetic complications: none Last intake: meal- 06/09 liquids- 06/09 Social Tobacco Airway Submandibular: within normal limits Cervical ROM: within normal limits Mallampati: Class II Dentition: false Comments: Comments: upper and lower plate Pulmonary None reported CV/HEM None reported None reported Hepatic None reported GI Gastroesophageal Reflux Disease Metabolic None reported Musc/skel None reported Neuropsych None reported Anesthetic Plan ASA status: 2 Anesthesia: Regional (specify below) Other: SAB Medications/Allergies Home Medications Medication Instructions Recorded Confirmed Last Taken Type 1 tab PO DAILY 06/02/22 06/10/22 06/09/22 History famotidine 20 mg tablet See Rx Instructions .Route 06/05/22 06/10/22 06/09/22 Rx .COMPLEX #60 tabs Allergies Allergy/AdvReac Type Severity Reaction Status Date / Time No Known Allergies Allergy Verified 06/10/22 05:38 [facility] Anesthesia Medical History Bronchitis frequent 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 No pertinent past medical history neghx: htn,dm,thyroid,dvt/pe,herpes Denies past partner herpes hx PCP: none Surgical History H/O dilation and curettage (~2009) History of section (~2010) 1)-2010 delivered at 20weeks; placental abruption- CLASSICAL C/S 2)- 02/2021 at 36weeks Family History Family/Other Breast cancer maternal aunt Family/Other Breast cancer maternal side--unknown Mother Stroke Diabetes Thyroid disease Father Hypertension Heart disease Denies family history of Colon cancer Ovarian cancer Uterine cancer Female Reproductive History : 4 Data Anesthesia 06/10/22 05:15 Short CBC 06/10/22 Range/Units 05:15 WBC 14.2 H (4.0-10.0) 10^3/uL Hgb 11.3 L (11.5-15.3) g/dL Hct 35.4 L (37.0-47.0) % MCV 87.2 (81-99) fl Plt Count 329 (130-400) 10^3/cmm Neut % (Auto) 67.4 % Neut # (Auto) 9.57 H (1.8-7.7) 10^3/uL Cardiac Studies: No Data to Display
[2022-06-10] MEDS: citric acid-sodium citrate 30 mL UDC PO (06:47)
[2022-06-10] MEDS: famotidine 20 mg/2 mL INJ IVP (06:47)
[2022-06-10] MEDS: metoclopramide 5 mg/mL SDV 2 mL 10 MG IVP (06:47)
--- NOTE | 2022-06-10 06:54 | PM.OPHPUD ---
Labor & Delivery H&P Update Date of Procedure: June 10, 2022 Date H&P Performed: 06/02/22 H&P update information: I have reviewed H&P completed within last 30 days, I have examined patient prior to procedure and No changes to prior documentation Admission Diagnosis: Preop diagnosis: Previous Section, previous classical incision Planned procedure: Operation Date: 06/10/22 07:00 Proposed Procedures p Section Repeat With Tubal 91627/13921 O34.219 z30.2(Not Applicable) - Angely Hoffman MD Related Problem List Diagnoses (1) GBS (group B Streptococcus carrier), +RV culture, currently : (2) Sterilization consult: (3) Supervision of high risk , antepartum:
[2022-06-10] MEDS: ceFAZolin 2,000 MG in sodium chloride 0.9% (plus) 50 ML 100 MG IV (07:10)
--- NOTE | 2022-06-10 08:37 | P.OP_ITS ---
Operative Report Date of procedure: June 10, 2022 Pre-op diagnosis: Preop Diagnosis Previous Section, previous classical incision Desires sterilization Post-op diagnosis: same Post-op findings: term male in the kimberley breech presentation, normal appearing uterus, tubes and ovaries. moderate adhesions of the left adnexae Procedure done: repeat with bilateral salpingectomy Specimens removed/disposition: bilateral fallopian tubes to pathology Surgeon: Angely Hoffman Anesthesia: Other (spinal) Estimated blood loss (mL): 100 IV fluids (mL): 1,500 Urine output (mL): 100 Complications: none Condition: stable Disposition: PACU Procedure: The patient was taken to the operating room where spinal anesthesia was administered and found to be adequate. She was prepped and draped in the normal sterile fashion in the dorsal supine position with a leftward tilt. A Pfannenstiel skin incision was made and carried down to the underlying layer of fascia. The fascia was nicked in the midline and extended laterally with the Jimenez scissors. The fascia was then tented up and the rectus muscles dissected off sharply. The rectus muscles were and the peritoneum entered bluntly with the digit. The peritoneal incision was extended superiorly and inferiorly with good visualization of the bladder. The Wali O retractor was placed. It was clear of any bowel or omentum. The bladder flap was created sharply with the Metzenbaum scissors. A low transverse uterine incision was made and carried down to the bag of water. The bag of water was ruptured and the uterine incision extended cephalocaudad. The breech was grasped and brought through the incision, followed by the body and head. The nose and mouth were bulb suctioned. The baby was allowed to rest, while being dried, for 1 minute and then the cord was clamped and cut. The baby was handed to the waiting indirect fire infantryman. The placenta was delivered by expression. The uterus was exteriorized and cleared of all clots and debris. The uterine incision was closed with 0 Vicryl in a running fashion. A second imbricating layer of 3-0 Monocryl was used to close the uterus. The bladder flap was closed with 3-0 Monocryl. There was excellent hemostasis. Attention was then turned to the salpingectomy portion of the procedure. The left fallopian tube was grasped with an allis clamp and elevated. Using a cautery device and starting at the cornua, the mesosalpinx was cauterized and divided down to the the fimbria of the fallopian tube. The entire tube was removed. There was excellent hemostasis. The right tube was removed in a similar manner. The Wali O retractor was removed. The uterus was returned to the abdomen. The peritoneum was closed with 3-0 Monocryl, incorporating the rectus muscle. The fascia was closed with 0 Vicryl in 2 separate sutures overlapping in the midline. The skin was closed with absorbable maite. Apgars on baby 8 at 1 minute and 9 at 5 minutes. weight 5 pounds 10 ounces. Mother and baby were stable post delivery. The baby was taken to the nursery for close observation.
[2022-06-10] MEDS: ketorolac 30 mg/mL INJ IVP ×2 (09:57→16:16)
[2022-06-10] MEDS: dextrose 5%-lactated ringers 1,000 ML 125 ML IV (09:59)
[2022-06-10] MEDS: diphenhydrAMINE 50 mg/mL SDV 1mL 25 MG IVP (11:32)
--- NOTE | 2022-06-10 13:23 | ANE.PACU2 ---
Inpatient post-anesthesia follow up: Airway intact: Yes Vital signs: Temperature 98.1 F Pulse Rate 73 Respiratory Rate 16 Blood Pressure 105/58 Pulse Oximetry 98 Oxygen Delivery Me thod Room Air Oxygen Flow Rate Fraction of Inspir ed Oxygen Hydration adequate: Yes Nausea and vomiting: No Pain level: 2 Mental status: Baseline
[2022-06-10] MEDS: sodium chloride 0.9% 500 ML 999 ML IV (14:25)
--- NOTE | 2022-06-10 16:30 | PC.NURSE ---
Assisted patient with hand expression. Patient states she doesn't want to do this and will have her bring her her pump. She stated to give the baby formula until her pump arrives.
[2022-06-10] MEDS: docusate sodium 100 mg Capsule PO (18:51)
[2022-06-10] MEDS: simethicone 80 mg Chew PO (22:21)
[2022-06-10] MEDS: oxyCODONE-APAP 5-325 mg Tablet PO (22:47)
[2022-06-11] VITALS (8 sets, daily range): BP systolic 128–144; BP diastolic 61–80; PULSE 80–109; RESP 16; TEMP 36.6–36.8; O2SAT 98–99
[2022-06-11 00:51] LABS: Hematocrit 31.9 % (37.0-47.0); Hemoglobin 10.3 g/dL (11.5-15.3); Mean Corpuscular HGB Conc 32.3 g/dL (30.0-36.0); Mean Corpuscular Hemoglobin 28.4 pg (28.0-34.0); Mean Corpuscular Volume 87.9 fl (81-99); Mean Platelet Volume 10.7 fL (7.4-10.4); Platelet Count 306 10^3/cmm (130-400); Red Blood Count 3.63 10^6/uL (4.1-5.3); Red Cell Distribution Width 15.3 % (12.1-15.1); White Blood Count 15.1 10^3/uL (4.0-10.0)
[2022-06-11] MEDS: oxyCODONE-APAP 5-325 mg Tablet PO ×3 (03:07→21:18)
[2022-06-11] MEDS: ibuprofen 800 mg tablet PO ×3 (09:05→21:18)
[2022-06-11] MEDS: docusate sodium 100 mg Capsule PO ×2 (09:05→21:18)
[2022-06-11] MEDS: prenatal vitamin Capsule 1 CAP PO (09:05)
[2022-06-11] MEDS: famotidine 20 mg Tablet PO (11:42)
--- NOTE | 2022-06-11 12:55 | P.DS_ITS ---
Discharge Providers Date of Admission: 06/10/22 04:59 Date of Discharge: June 11, 2022 Attending Provider at Admission: Angely Hoffman MD Attending Provider at Discharge: Angely Hoffman MD Diagnoses at Discharge Discharge Diagnosis (1) GBS (group B Streptococcus carrier), +RV culture, currently : Status: Acute (2) Sterilization consult: Status: Acute (3) Supervision of high risk , antepartum: Status: Acute Reason for Visit Reason for Visit: Repeat section 12662, 68808 Physical Exam Urinary Catheter Management: Beck: Cath Placed During This Visit: yes, but has since been removed by the nurse Reason for Continuing Indwelling Catheter: Decision to DC Catheter Urinary Catheter Date of Insertion: 06/10/22 Urinary Catheter Time of Insertion: 07:15 Date Urinary Catheter Removed: 06/10/22 Time Urinary Catheter Discontinued: 22:20 Discharge Data Studies Completed and Pending Laboratory Results WBC 15.1 10^3/uL (4.0-10.0) H 06/11/22 00:46 RBC 3.63 10^6/uL (4.1-5.3) L 06/11/22 00:46 Hgb 10.3 g/dL (11.5-15.3) L 06/11/22 00:46 Hct 31.9 % (37.0-47.0) L 06/11/22 00:46 MCV 87.9 fl (81-99) 06/11/22 00:46 MCH 28.4 pg (28.0-34.0) 06/11/22 00:46 MCHC 32.3 g/dL (30.0-36.0) 06/11/22 00:46 RDW 15.3 % (12.1-15.1) H 06/11/22 00:46 Plt Count 306 10^3/cmm (130-400) 06/11/22 00:46 MPV 10.7 fL (7.4-10.4) H 06/11/22 00:46 Neut % (Auto) 67.4 % 06/10/22 05:15 Lymph % (Auto) 25.0 % 06/10/22 05:15 [place] % (Auto) 5.3 % 06/10/22 05:15 Eos % (Auto) 1.5 % 06/10/22 05:15 Baso % (Auto) 0.2 % 06/10/22 05:15 Neut # (Auto) 9.57 10^3/uL (1.8-7.7) H 06/10/22 05:15 Lymph # (Auto) 3.6 10^3/uL (0.8-4.8) 06/10/22 05:15 [place] # (Auto) 0.8 10^3/uL (0.2-0.9) 06/10/22 05:15 Eos # (Auto) 0.2 10^3/uL (0.0-0.8) 06/10/22 05:15 Baso # (Auto) 0.0 10^3/uL (0.0-0.1) 06/10/22 05:15 Nucleated RBC % (auto) 0 % 06/10/22 05:15 Nucleated RBCs # 0.0 /100WBC 06/10/22 05:15 Blood Type O Positive 06/10/22 05:15 Rho(D) Type Positive 06/10/22 05:15 Antibody Screen Negative 06/10/22 05:15 Vitals Last Vital Signs Temp 97.9 F 06/11/22 09:07 Pulse 85 06/11/22 09:07 Resp 16 06/11/22 09:07 BP 128/61 06/11/22 09:07 Pulse Ox 98 06/11/22 09:07 O2 Del Method 06/11/22 09:07 Discharge Plan Discharge Patient Disposition: Home Condition: Stable Prescriptions: New ibuprofen 800 mg Tablet 800 mg PO TID Qty: 30 0RF oxycodone-acetaminophen 5-325 mg Tablet 1 tab PO Q4H PRN (Reason: Moderate To Severe Pain) Qty: 30 0RF docusate sodium 100 mg Capsule 100 mg PO BID Qty: 60 0RF ferrous sulfate 325 mg (65 mg iron) Tablet,Delayed Release (Dr/Ec) 325 mg PO BIDWM Qty: 30 0RF Continued famotidine 20 mg tablet See Rx Instructions .ROUTE .COMPLEX Qty: 60 5RF Dose Instruction: TAKE 1 TABLET BY MOUTH TWICE DAILY Rx Instructions: TAKE 1 TABLET BY MOUTH TWICE DAILY 1 tab PO DAILY Patient Instructions: Opioid Safety Coding Level of Care Code Acute Chg FW DC note Diagnoses GBS (group B Streptococcus carrier), +RV culture, currently O99.820 Sterilization consult Z30.09 Supervision of high risk , antepartum O09.90
--- NOTE | 2022-06-11 17:04 | PM.PN ---
Vitals/I&O/Wt Last Vital Signs Temp 97.9 F 06/11/22 16:00 Pulse 94 06/11/22 16:00 Resp 16 06/11/22 16:00 BP 144/80 06/11/22 16:00 Pulse Ox 98 06/11/22 09:07 O2 Del Method 06/11/22 09:07 Weight last 48 hrs Weight 190 lb Physical Exam Narrative: The patient is doing well this morning. She has no concerns. Const: COMMON NORMALS: no acute distress, patient oriented x3, no limitations, healthy appearing, alert and well nourished GENERAL APPEARANCE: cooperative, comfortable, well kempt and well developed ORIENTATION/CONSCIOUSNESS: Yes awake, Yes oriented to person, Yes oriented to place and Yes oriented to time Resp: COMMON NORMALS: normal respiratory effort EFFORT & INSPECTION: Yes able to speak in complete sentences GI: COMMON NORMALS: Soft to palpation and non-tender PALPATION: Yes Soft to palpation Extremity: COMMON NORMALS: no calf tenderness Neuro: COMMON NORMALS: patient oriented x3 SENSORIUM/ORIENTATION: Yes alert, Yes oriented to person, Yes oriented to place and Yes oriented to time Psych: APPEARANCE: Yes well kempt Skin: WOUNDS: Yes surgical site (clean/dry/intact) Urinary Catheter Management: Beck: Cath Placed During This Visit: yes, but has since been removed by the nurse Reason for Continuing Indwelling Catheter: Decision to DC Catheter Urinary Catheter Date of Insertion: 06/10/22 Urinary Catheter Time of Insertion: 07:15 Date Urinary Catheter Removed: 06/10/22 Time Urinary Catheter Discontinued: 22:20 Data 06/11/22 00:46 Attestations Medical Necessity Statement*: The patient will be here for two midnights. 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
[2022-06-11] MEDS: ferrous sulfate EC 325 mg Tablet PO (21:17)
[2022-06-12 05:21] VITALS: RESP 17; O2SAT 99
[2022-06-12] MEDS: oxyCODONE-APAP 5-325 mg Tablet PO ×2 (05:21→11:30)
[2022-06-12] MEDS: famotidine 20 mg Tablet PO (09:07)
[2022-06-12] MEDS: ibuprofen 800 mg tablet PO (09:07)
[2022-06-12] MEDS: prenatal vitamin Capsule 1 CAP PO (09:07)
--- NOTE | 2022-06-12 10:55 | P.DS_ITS ---
Discharge Providers Date of Admission: 06/10/22 04:59 Date of Discharge: June 12, 2022 Attending Provider at Admission: Angely Hoffman MD Attending Provider at Discharge: Angely Hoffman MD Diagnoses at Discharge Discharge Diagnosis (1) GBS (group B Streptococcus carrier), +RV culture, currently : Status: Acute (2) Sterilization consult: Status: Acute (3) Supervision of high risk , antepartum: Status: Acute Reason for Visit Reason for Visit: Repeat section 34021, 95977 Hospital Course Hospital Course The patient was admitted for repeat . she did well postoperatively and was ready for discharge on day #2 Physical Exam Narrative: The patient is doing well this morning. She is ready for discharge. Const: COMMON NORMALS: no acute distress, patient oriented x3, no limitations, healthy appearing, alert and well nourished GENERAL APPEARANCE: cooperative, comfortable, well kempt and well developed ORIENTATION/CONSCIOUSNESS: Yes awake, Yes oriented to person, Yes oriented to place and Yes oriented to time Resp: COMMON NORMALS: normal respiratory effort EFFORT & INSPECTION: Yes able to speak in complete sentences GI: COMMON NORMALS: Soft to palpation and non-tender PALPATION: Yes Soft to palpation Extremity: COMMON NORMALS: no calf tenderness Neuro: COMMON NORMALS: patient oriented x3 SENSORIUM/ORIENTATION: Yes alert, Yes oriented to person, Yes oriented to place and Yes oriented to time Psych: APPEARANCE: Yes well kempt Urinary Catheter Management: Beck: Cath Placed During This Visit: yes, but has since been removed by the nurse Reason for Continuing Indwelling Catheter: Decision to DC Catheter Urinary Catheter Date of Insertion: 06/10/22 Urinary Catheter Time of Insertion: 07:15 Date Urinary Catheter Removed: 06/10/22 Time Urinary Catheter Discontinued: 22:20 Discharge Data Studies Completed and Pending Laboratory Results WBC 15.1 10^3/uL (4.0-10.0) H 06/11/22 00:46 RBC 3.63 10^6/uL (4.1-5.3) L 06/11/22 00:46 Hgb 10.3 g/dL (11.5-15.3) L 06/11/22 00:46 Hct 31.9 % (37.0-47.0) L 06/11/22 00:46 MCV 87.9 fl (81-99) 06/11/22 00:46 MCH 28.4 pg (28.0-34.0) 06/11/22 00:46 MCHC 32.3 g/dL (30.0-36.0) 06/11/22 00:46 RDW 15.3 % (12.1-15.1) H 06/11/22 00:46 Plt Count 306 10^3/cmm (130-400) 06/11/22 00:46 MPV 10.7 fL (7.4-10.4) H 06/11/22 00:46 Neut % (Auto) 67.4 % 06/10/22 05:15 Lymph % (Auto) 25.0 % 06/10/22 05:15 [place] % (Auto) 5.3 % 06/10/22 05:15 Eos % (Auto) 1.5 % 06/10/22 05:15 Baso % (Auto) 0.2 % 06/10/22 05:15 Neut # (Auto) 9.57 10^3/uL (1.8-7.7) H 06/10/22 05:15 Lymph # (Auto) 3.6 10^3/uL (0.8-4.8) 06/10/22 05:15 [place] # (Auto) 0.8 10^3/uL (0.2-0.9) 06/10/22 05:15 Eos # (Auto) 0.2 10^3/uL (0.0-0.8) 06/10/22 05:15 Baso # (Auto) 0.0 10^3/uL (0.0-0.1) 06/10/22 05:15 Nucleated RBC % (auto) 0 % 06/10/22 05:15 Nucleated RBCs # 0.0 /100WBC 06/10/22 05:15 Blood Type O Positive 06/10/22 05:15 Rho(D) Type Positive 06/10/22 05:15 Antibody Screen Negative 06/10/22 05:15 Vitals Last Vital Signs Temp 97.9 F 06/11/22 16:00 Pulse 80 06/11/22 21:24 Resp 17 06/12/22 05:21 BP 135/68 06/11/22 21:24 Pulse Ox 99 06/12/22 05:21 O2 Del Method 06/11/22 09:07 Discharge Plan Discharge Patient Disposition: Home Condition: Stable Prescriptions: New ibuprofen 800 mg Tablet 800 mg PO TID Qty: 30 0RF oxycodone-acetaminophen 5-325 mg Tablet 1 tab PO Q4H PRN (Reason: Moderate To Severe Pain) Qty: 30 0RF docusate sodium 100 mg Capsule 100 mg PO BID Qty: 60 0RF ferrous sulfate 325 mg (65 mg iron) Tablet,Delayed Release (Dr/Ec) 325 mg PO BIDWM Qty: 30 0RF Continued famotidine 20 mg tablet See Rx Instructions .ROUTE .COMPLEX Qty: 60 5RF Dose Instruction: TAKE 1 TABLET BY MOUTH TWICE DAILY Rx Instructions: TAKE 1 TABLET BY MOUTH TWICE DAILY 1 tab PO DAILY Discharge Orders: Discharge Order (Routine); Ordered 06/12/22 Ordered By: Angely Hoffman Discharge Diet: Usual diet Discharge Activity: Limit activity as instructed Patient Instructions: Iron Supplements (By mouth), Ibuprofen (By mouth), Oxyco done/Acetaminophen (By mouth) (Percocet, Roxicet), Laxative, Stool Softeners (By mouth) (Doculax, Colace, Colace Clear, DSS), Caring for Your Baby (DC), Bleeding (DC), Preeclampsia and Eclampsia After Delivery (GEN), Your [place]'s Appearance (DC), (DC), Safe Sleeping for Infants (DC), Opioid Safety, Abnormal Bleeding Activity Restrictions/Additional Instructions: Please call [facility] Thursday, 06/13 for a post op incision check in 1 week and a 4 week follow up visit. [phone] Discharge Attestations Time Spent in Discharge Care*: less than 30 min Quality Metrics Clinical Quality Measures [ No reported AMI, CVA or VTE this stay] Coding Level of Care Code Acute Chg FW DC note Diagnoses GBS (group B Streptococcus carrier), +RV culture, currently O99.820 Sterilization consult Z30.09 Supervision of high risk , antepartum O09.90
[2022-06-12 11:30] VITALS: BP 130/79; PULSE 80; RESP 17
== END 2022-06-12 11:45 | disposition home or self-care (01) | DRG 785 ==
PROVIDERS: Admitting Provider Obstetrics & Gynecology; Visit Provider Obstetrics & Gynecology
PROC: 10D00Z1 Extraction of Products of Conception, Low, Open Approach (ICD-10-PCS; CPT 59514; principal; 2022-06-10 07:00)
DX: O34.212 Maternal care for vertical scar from previous cesarean delivery (principal); O99.824 Streptococcus B carrier state complicating childbirth; O99.62 Diseases of the digestive system complicating childbirth; K21.9 Gastro-esophageal reflux disease without esophagitis; O99.334 Smoking (tobacco) complicating childbirth; F17.200 Nicotine dependence, unspecified, uncomplicated; Z3A.36 36 weeks gestation of pregnancy; Z37.0 Single live birth; Z30.2 Encounter for sterilization
CPT/HCPCS: 36415; 51702; 59025; 59409; 85025; 85027; 86850; 86900; 88302; 96374; 96376; J0690; J1200; J1885; J2274; J2370; J2405; J2590; J2765; J3490; J7040; J7120; J7121

== ENCOUNTER 2025-05-22 16:12 | Emergency (ER) | payer BC, MEDICAID, SELFPAY ==
[2025-05-22 16:24] VITALS: BP 115/76; PULSE 125; RESP 18; TEMP 37.6; O2SAT 100; BMI 27.6
[2025-05-22 17:33] LABS: Hematocrit 41.8 % (36-47); Hemoglobin 13.50 g/dL (11.27-16.99); Mean Corpuscular HGB Conc 32.3 g/dL (30-55); Mean Corpuscular Hemoglobin 28.8 pg (27-33); Mean Corpuscular Volume 89.3 fl (85-98); Nucleated Red Blood Cells % 0 %; Platelet Count 302 10^3/cmm (157-399); Red Blood Count 4.68 10^6/uL (3.85-5.65); White Blood Count 19.60 10^3/uL (3.29-11.43)
[2025-05-22 17:46] LABS: Glucose Urine UA Negative (Normal); Nitrate Urine Positive (Negative); Specific Gravity, Urine 1.017 (1.005-1.030)
[2025-05-22 18:00] LABS: Alanine Aminotransferase 13 U/L (0-33); Albumin Level 4.1 g/dL (3.5-5.2); Alkaline Phosphatase 57 U/L (35-105); Anion Gap 17.1 (5-19); Aspartate Amino Transferase 12 U/L (0-32); Blood Urea Nitrogen 9 mg/dL (6-20); Calcium 9.5 mg/dL (8.5-10.5); Carbon Dioxide 21 mmol/L (22-29); Chloride 101 mmol/L (98-107); Creatinine Clr Calc Pharmacy 89.0455; Globulin 3.3 g/dL (1.3-4.6); Glucose 93 mg/dL (65-115); Lactic Sepsis W/Reflex 1.0 mmol/L (0.5-2.2); Osmolality Calculated 278 mOsm/kg (285-295); Potassium 4.1 mmol/L (3.5-5.1); Sodium 135 mmol/L (136-145); Total Protein 7.4 g/dL (6.6-8.7)
--- NOTE | 2025-05-22 18:27 | ED_ITS ---
HPI - Female Genitourinary 2 General: Chief complaint: Urogenital-Female Stated complaint: L side, lower back pain, blood in urine Time Seen by Provider: 05/22/25 18:27 History of Present Illness: 39-year-old female with no active medica l problems who presents emergency room with left flank pain and dysuria. Has been going on for a few days now. No fevers. She says she has had intermittent hematuria. Pain has been fairly constant and worsening. She has had some nausea but no vomiting. Has a low- grade temp on presentation here. No altered mental status. No focal motor deficits. Related Data Previous Rx's ?Medication ?Instructions ?Recorded cephalexin 500 mg capsule 500 mg PO BID 7 days #14 cap s 11/27/23 cefdinir 300 mg capsule 300 mg PO BID 10 days #20 ca ps 05/22/25 hydrocodone 5 mg-acetaminophen 325 1 tab PO Q6H PRN pa in #20 tabs 05/22/25 mg tablet ondansetron 4 mg disintegrating 4 mg PO Q8H PRN nausea and 05/22/25 tablet vomiting #10 tabs polyethylene glycol 3350 17 17 g PO DAILY #510 grams 1 07/22/24 gram/dose oral powder (Miralax) Allergies Allergy/AdvReac Type Severity Reaction Status Date / Time No Known Allergies Allergy Verified 05/22/25 16:28 Review of Systems 2 Narrative: Constitutional symptoms: Negative except as documented in HPI. Skin symptoms: Negative except as documented in HPI. Eye symptoms: Negative except as documented in HPI. ENMT symptoms: Negative except as documented in HPI. Respiratory symptoms: Negative except as documented in HPI. Cardiovascular symptoms: Negative except as documented in HPI. Gastrointestinal symptoms: Negative except as documented in HPI. Genitourinary symptoms: Negative except as documented in HPI. Musculoskeletal symptoms: Negative except as documented in HPI. Neurologic symptoms: Negative except as documented in HPI. Psychiatric symptoms: Negative except as documented in HPI. Endocrine symptoms: Negative except as documented in HPI. 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 Bronchitis frequent No pertinent past medical history neghx: htn,dm,thyroid,dvt/pe,herpes Denies past partner herpes hx PCP: none Surgical History History of section (~2010) 1)-2010 delivered at 20weeks; placental abruption- CLASSICAL C/S 2)- 02/2021 at 36weeks H/O dilation and curettage (~2009) Family History Family/Other Breast cancer maternal aunt Family/Other Breast cancer maternal side--unknown Mother Stroke Diabetes Thyroid disease Father Hypertension Heart disease Denies family history of Colon cancer Ovarian cancer Uterine cancer Social History Substance/Drug Use: never Physical Exam 2 Narrative: EXAM NARRATIVE: General: Alert, no acute distress. Skin: Warm, dry. Head: Normocephalic, atraumatic. Neck: Supple, trachea midline. Eye: Extraocular movements are intact. Ears, nose, mouth and throat: Tacky oral mucosa Cardiovascular: Regular, Normal peripheral perfusion. Respiratory: Lungs are clear to auscultation, respirations are non-labored, breath sounds are equal, Symmetrical chest wall expansion. Gastrointestinal: Soft, left flank pain, Non distended Musculoskeletal: Normal ROM, no deformity. Neurological: Alert and oriented, No focal neurological deficit observed. Psychiatric: Cooperative, appropriate mood & affect. Course 2 Vital Signs: Vital signs: Vital Signs Temperature 99.6 F 05/22/25 16:24 Pulse Rate 106 H 05/22/25 19:20 Respiratory Rate 16 05/22/25 18:54 Blood Pressure 98/67 05/22/25 19:20 Pulse Oximetry 99 05/22/25 19:20 Oxygen Delivery Me thod Room Air 05/22/25 19:20 MDM - Female Medical Decision Making Medical decision making: Patient's reason for coming to the emergency room Social determinants: Patient has a life partner who is present. She is employed. She works at [employer]. I reviewed the patient's medical record. Patient has no active medical problems. Most recent visit was in November with [facility]. This the primary of her visits have been to [facility]. I reviewed the patient's current home meds Patient takes no current long-term medications. Alternate historians: Life partner does provide some history. Differential diagnosis including but not limited to and based on the above HPI, review of systems and physical exam: In this patient with flank pain would have concern for: Ureterolithiasis. Urinary tract infection. Appendicitis. Cholecystitis. Musculoskeletal / back pain. Pyelonephritis. Orders placed to evaluate differential diagnosis based on the above differential, HPI and physical exam Lab Review: Laboratory results were reviewed and interpreted by myself the emergency room physician. Leukocytosis with a white count of 19,000 but she does not have an elevated lactate. No renal failure. Urinalysis is negative blood but positive for white cells, bacteria. Nitrate and leukocyte esterase. Given her symptoms she likely has Oumar CT of the abdomen pelvis. There is some inflammatory changes which would indicate pyelonephritis. No other acute findings. This was reviewed and interpreted by myself the emergency room physician. I also reviewed the radiology report. Assessment of risk: Level of risk: Moderate Hospitalization considerations: I was planning to admit the patient as she has pyelo with a fairly high leukocytosis but she request to go home and try oral medications initially. Vital signs are improving with fluids. Her lactate is not elevated. Life partner is very diligent and her care and I think will be reliable to bring her back if she gets worse. Reexamination: Patient remained stable. No increased work of breathing. No altered mental status. No focal motor deficits. Assessment and plan: Pyelonephritis Urinary tract infection Dehydration ? 2 L normal saline bolus and IV Rocephin. - Discharged home - Discussed plan with patient. Answered any questions. - Evaluation and treatment of this problem were appropriate in the emergency setting. Lab Data 05/22/25 17:21 05/22/25 17:21 Radiology Impressions Abdomen/Pelvis CT 05/22/25 19:24 IMPRESSION: Inflammatory changes in the left retroperitoneum in between the pancreas and kidney, consider pancreatitis versus pyelonephritis with other etiologies not excluded. COMMENTS: Consistent with the [employer]'s Incidental Findings Committee white paper (J Am Jossie Radiol 2018): Any incidental renal lesion less than 1 cm or classified as too small to characterize, or any incidental cystic renal lesion characterized as simple-appearing, is likely benign. No follow-up imaging is recommended for these lesions per consensus recommendations based on imaging criteria. ADDENDUM: 05/22/251951 No definitive evidence of radiopaque renal calculi. Laboratory Results WBC 19.60 10^3/uL (3.29-11.43) H 05/22/25 17:21 RBC 4.68 10^6/uL (3.85-5.65) 05/22/25 17:21 Hgb 13.50 g/dL (11.27-16.99) 05/22/25 17:21 Hct 41.8 % (36-47) 05/22/25 17:21 MCV 89.3 fl (85-98) 05/22/25 17:21 MCH 28.8 pg (27-33) 05/22/25 17:21 MCHC 32.3 g/dL (30-55) 05/22/25 17:21 RDW 13.2 % (12.1-15.1) 05/22/25 17:21 Plt Count 302 10^3/cmm (157-399) 05/22/25 17:21 MPV 10.7 fL (7.4-10.4) H 05/22/25 17:21 Neut % (Auto) 75.6 % 05/22/25 17:21 Lymph % (Auto) 16.3 % 05/22/25 17:21 Wilcox % (Auto) 6.4 % 05/22/25 17:21 Eos % (Auto) 0.8 % 05/22/25 17:21 Baso % (Auto) 0.3 % 05/22/25 17:21 Neut # (Auto) 14.83 10^3/uL (1.8-7.7) H 05/22/25 17:21 Lymph # (Auto) 3.2 10^3/uL (0.8-4.8) 05/22/25 17:21 Wilcox # (Auto) 1.3 10^3/uL (0.2-0.9) H 05/22/25 17:21 Eos # (Auto) 0.2 10^3/uL (0.0-0.8) 05/22/25 17:21 Baso # (Auto) 0.1 10^3/uL (0.0-0.1) 05/22/25 17:21 Nucleated RBC % (auto) 0 % 05/22/25 17:21 Nucleated RBCs # 0.0 /100WBC 05/22/25 17:21 Sodium 135 mmol/L (136-145) L 05/22/25 17:21 Potassium 4.1 mmol/L (3.5-5.1) 05/22/25 17:21 Chloride 101 mmol/L (98-107) 05/22/25 17:21 Carbon Dioxide 21 mmol/L (22-29) L 05/22/25 17:21 Anion Gap 17.1 (5-19) 05/22/25 17:21 BUN 9 mg/dL (6-20) 05/22/25 17:21 Creatinine 0.8 mg/dL (0.5-0.9) 05/22/25 17:21 GFR Calculation 79.9 mL/min (90-130) L 05/22/25 17:21 Glucose 93 mg/dL (65-115) 05/22/25 17:21 Calculated Osmolality 278 mOsm/kg (285-295) L 05/22/25 17:21 Lactic Acid 1.0 mmol/L (0.5-2.2) 05/22/25 17:21 Calcium 9.5 mg/dL (8.5-10.5) 05/22/25 17:21 Total Bilirubin 0.5 mg/dL (0.15-1.2) 05/22/25 17:21 AST 12 U/L (0-32) 05/22/25 17:21 ALT 13 U/L (0-33) 05/22/25 17:21 Alkaline Phosphatase 57 U/L (35-105) 05/22/25 17:21 C-Reactive Protein 137.2 mg/L (0.0-4.9) H 05/22/25 17:21 Total Protein 7.4 g/dL (6.6-8.7) 05/22/25 17:21 Albumin 4.1 g/dL (3.5-5.2) 05/22/25 17:21 Globulin 3.3 g/dL (1.3-4.6) 05/22/25 17:21 Urine Color Yellow (Yellow) 05/22/25 17:26 Urine Appearance Cloudy (CLEAR) A 05/22/25 17: Urine pH 5.5 (5-7) 05/22/25 17:26 Ur Specific Babcock 1.017 (1.005-1.030) 05/22/25 17: Urine Protein 2+ (Negative) A 05/22/25 17:26 Urine Glucose (UA) Negative (Normal) 05/22/25 17:26 Urine Ketones Negative (Negative) 05/22/25 17:26 Urine Blood 1+ (Negative) A 05/22/25 17:26 Urine Nitrate Positive (Negative) A 05/22/25 17:26 Urine Bilirubin Negative (Negative) 05/22/25 17:26 Urine Urobilinogen 0.2 mg/dL (Negative) 05/22/25 17:26 Ur Leukocyte Esterase 2+ (Negative) A 05/22/25 17:26 Urine RBC 0-2 /hpf (0-2) 05/22/25 17:26 Urine WBC >100 /hpf (0-5) H 05/22/25 17:26 Ur Squamous Epith Cells 0-5 /hpf (0-5) 05/22/25 17:26 Amorphous Sediment Not Reportable 05/22/25 17:26 Urine Bacteria 4+ /hpf (NONE) H 05/22/25 17:26 Hyaline Casts 4.11 /lpf 05/22/25 17:26 All radiology interpretation(s) finalized by discharge Discharge Plan Discharge Patient Disposition: Home Clinical Impression: Urinary tract infection, Pyelonephritis Condition: Stable Prescriptions: New hydrocodone-acetaminophen 5-325 mg tablet 1 tab PO Q6H PRN (Reason: pain) Qty: 20 0RF polyethylene glycol 3350 [Miralax] 17 gram/dose powder 17 g PO DAILY Qty: 510 0RF Rx Instructions: Take 1 scoop daily while taking pain medications. ondansetron 4 mg tablet,disintegrating 4 mg PO Q8H PRN (Reason: nausea and vomiting) Qty: 10 0RF cefdinir 300 mg capsule 300 mg PO BID 10 Days Qty: 20 0RF No Action cephalexin 500 mg capsule 500 mg PO BID 7 Days Qty: 14 0RF Discharge Orders: Discharge ED (Routine); Ordered 05/22/25 Ordered By: July Lao Discharge Diet: Usual diet Discharge Activity: Increase activity as tolerated Patient Instructions: Urinary Tract Infection in Women (DC), Kidney Infection (ED), Opioid Safety, Pain Management, Patient Portal & [place] Instructions Activity Restrictions/Additional Instructions: You need to have a very low threshold for returning to the emergency room. If you develop fevers, altered mental status or other worrisome symptoms please return to the emergency room or seek urgent medical attention. Thank you for choosing [facility] for your healthcare needs today. You have been screened and evaluated and felt safe for discharge. Health conditions do change or evolve sometimes and as such it is important that you follow up with your Primary Doctor to be re checked, 3-5 days is a general good time frame for follow up. You are always welcome to return to the ED for re assessment if your symptoms are worsening or you have new concerns Print Language: Irish Coding Level of Care Code ED Polish Maker for Luiza Silver
[2025-05-22 18:54] VITALS: BP 103/75; PULSE 112; RESP 16; O2SAT 96
[2025-05-22 19:20] VITALS: BP 98/67; PULSE 106; O2SAT 99
[2025-05-22] MEDS: cefTRIAXone 1,000 mg SDV 1000 MG IVP (19:24)
--- NOTE | 2025-05-22 19:24 | CTR_ITS ---
PROCEDURE INFORMATION: Exam: CT Abdomen And Pelvis Without Contrast Exam date and time: 05/22/2025 7:34 PM Age: 39 years old Clinical indication: Abdominal pain; Left; PT arrives pov C/O L flank pain with blood in urine x3 days. TECHNIQUE: Imaging protocol: Computed tomography of the abdomen and pelvis without contrast. Radiation optimization: All CT scans at this facility use at least one of these dose optimization techniques: automated exposure control; mA and/or kV adjustment per patient size (includes targeted exams where dose is matched to clinical indication); or iterative reconstruction. COMPARISON: US OB F/[facility] w [id number] 06/02/2022 1:28 PM RADIATION DOSE METRICS: Total DLP (mGy-cm): 528.05 FINDINGS: Liver: Probable fat in the falciform. Gallbladder and biliary ducts: Normal. No calcified stones. No ductal dilation. Pancreas: See Retroperitoneal space finding. Spleen: Normal. No splenomegaly. Adrenal glands: Normal. No mass. Kidneys and ureters: Nonspecific although commonly benign renal cysts. Stomach and bowel: Fluid attenuation luminal material within several loops of small bowel, may be related to ingested material although can not exclude mild enteritis or diarrhea related process. Appendix: No evidence of appendicitis. Intraperitoneal space: Unremarkable. No free air. No significant fluid collection. Retroperitoneal space: Inflammatory changes in the left retroperitoneum in between the pancreas and kidney, consider pancreatitis versus pyelonephritis with other etiologies not excluded. Vasculature: Trace atheromatous vascular calcifications. Lymph nodes: Unremarkable. No enlarged lymph nodes. Urinary bladder: Unremarkable as visualized. Reproductive: Unremarkable as visualized. Bones/joints: Unremarkable. No acute fracture. Soft tissues: Unremarkable. CT/CT abdomen pelvis wo con [id number] IMPRESSION: Inflammatory changes in the left retroperitoneum in between the pancreas and kidney, consider pancreatitis versus pyelonephritis with other etiologies not excluded. COMMENTS: Consistent with the [employer]'s Incidental Findings Committee white paper (J Am Jossie Radiol 2018): Any incidental renal lesion less than 1 cm or classified as too small to characterize, or any incidental cystic renal lesion characterized as simple-appearing, is likely benign. No follow-up imaging is recommended for these lesions per consensus recommendations based on imaging criteria.
[2025-05-22 20:06] VITALS: BP 99/58; PULSE 110; O2SAT 100
== END 2025-05-22 21:00 | disposition home or self-care (01) ==
PROVIDERS: Emergency Provider Emergency Medicine
DX: N39.0 Urinary tract infection, site not specified (principal); N12 Tubulo-interstitial nephritis, not specified as acute or chronic
CPT/HCPCS: 36415; 74176; 80053; 81001; 83605; 85025; 86140; 87040; 87077; 87086; 87186; 96361; 96374; 96375; 99285; J0696; J1885; J7030